=== PATIENT | male | born 1945 ===

== ENCOUNTER 2018-05-23 14:12 | Inpatient (IN) | payer MEDICARE, MEDICAID ==
[~2018-05-23] VITALS: Ht 182.9 cm; Wt 105.4 kg
--- NOTE | 2018-05-23 22:00 | NUR ---
NURSE NOTES: Patient is transferred via gurney without any incident. Patient is alert to name only, able to follow simple commands, however, shows s/s of confusion. Vital signs are as follows: BP: 152/93, HR: 56, O2: 96 RA, T: 98.4. Skin assessment done, patient's skin is intact. Left hand 22g started. Belongings list checked and signed. Will contact primary MD regarding inpatient orders.
--- NOTE | 2018-05-23 22:30 | NUR ---
NURSE NOTES: Contacted Dr. Samuel, however, Dr. Abdalla is covering, new orders noted and will be carried out.
[2018-05-23 22:43] VITALS: BP 158/98
--- NOTE | 2018-05-23 22:50 | NUR ---
NURSE NOTES: Attempted to contact [facility] [phone] regarding patient's PNA and influenza vaccine, however, no one was able to picker machine operator.
[2018-05-23] MEDS ORDERED: METAMUCIL FIBE3.4 G1 PO (22:59)
[2018-05-23] MEDS ORDERED: LIPITOR20 MG ORAL (22:59)
[2018-05-23] MEDS ORDERED: MOM30 ML ORAL (22:59)
[2018-05-23] MEDS ORDERED: BENZTROPINE ME0.5 MG PO (22:59)
[2018-05-23] MEDS ORDERED: TRILEPTAL150 MG ORAL (22:59)
[2018-05-23] MEDS ORDERED: VITAMIN D1000 UNI1 ORAL (22:59)
[2018-05-23] MEDS ORDERED: SENNA LAXATIVE8.6 MG PO (22:59)
[2018-05-23] MEDS ORDERED: MEMANTINE HCL10 MG PO (22:59)
[2018-05-23] MEDS ORDERED: ACETAMINOPHEN120 MG PO (22:59)
[2018-05-23] MEDS ORDERED: ASPIRIN81 M3 PO (22:59)
[2018-05-23] MEDS ORDERED: DONEPEZIL HCL10 M2 ORAL (22:59)
[2018-05-23] MEDS ORDERED: Sennosides 8.6mg tab ORAL PRN (23:30)
[2018-05-24] VITALS (7 sets, daily range): BP systolic 120–180; BP diastolic 64–94
--- NOTE | 2018-05-24 03:00 | NUR ---
NURSE NOTES: Patient is asleep but arousable by voice. No s/s of acute distress. Will continue to monitor.
[2018-05-24] MEDS ORDERED: Sennosides 8.6mg tab ORAL PRN ×2 (06:45→12:45)
[2018-05-24 07:30] LABS: BASOPHILS % (AUTO) 0.9 % (0.0-2.0); EOSINOPHILS % (AUTO) 5.1 % (0.0-3.0); HEMATOCRIT 43.1 % (42.0-52.0); HEMOGLOBIN 15.9 G/DL (14.2-18.0); LYMPHOCYTES % (AUTO) 25.5 % (20.0-45.0); MEAN CORPUSCULAR VOLUME 97 FL (80-99); MONOCYTES % (AUTO) 11.6 % (1.0-10.0); PLATELET COUNT 149 K/UL (150-450); RED BLOOD COUNT 4.46 M/UL (4.70-6.10); RED CELL DISTRIBUTION WIDTH 11.6 % (11.6-14.8); WHITE BLOOD COUNT 5.3 K/UL (4.8-10.8)
[2018-05-24 07:37] LABS: APPEARANCE,URINE CLEAR; BILIRUBIN, URINE NEGATIVE (NEGATIVE); COLOR,URINE PALE YELLOW; GLUCOSE, URINE (UA) NEGATIVE (NEGATIVE); KETONES,URINE NEGATIVE (NEGATIVE); LEUKOCYTE ESTERASE ,URINE NEGATIVE (NEGATIVE); NITRITE,URINE NEGATIVE (NEGATIVE); PH,URINE 7 (4.5-8.0); PROTEIN,URINE NEGATIVE (NEGATIVE); UROBILINOGEN,URINE NORMAL MG/DL (0.0-1.0)
--- NOTE | 2018-05-24 07:43 | NUR ---
HAND-OFF: Report given to Case SANCHEZ. Patient is observed in bed, eating breakfast. Endorsed plan of care.
[2018-05-24 08:02] LABS: ANION GAP 7 mmol/L (5-15); BLOOD UREA NITROGEN 10 mg/dL (7-18); CALCIUM 8.6 MG/DL (8.5-10.1); CARBON DIOXIDE 26 MMOL/L (21-32); CHLORIDE 106 MMOL/L (98-107); POTASSIUM 3.7 MMOL/L (3.5-5.1); SODIUM 139 MMOL/L (136-145)
--- NOTE | 2018-05-24 08:15 | NUR ---
NURSE NOTES: Received patient from Yuliya RN, patient is resting bed comfortable, bed is locked and in lowest position, will continue to monitor.
--- NOTE | 2018-05-24 08:28 | NUR ---
NURSE NOTES: Received patient from DANIEL Dwyer. Patient in bed, in room air. Patient not in respiratory distress. Bed light in lowest position. Call light within reach. Will continue monitoring patient.
[2018-05-24] MEDS ORDERED: Milk of Magnesia 30ml Ud ORAL SCH (09:00)
[2018-05-24] MEDS ORDERED: Memantine 10mg tab ORAL SCH (09:00)
[2018-05-24] MEDS: Aspirin Baby 81mg ORAL SCH (09:10)
[2018-05-24] MEDS: OXcarbazepine 150mg tab ORAL SCH ×3 (09:10→17:51)
[2018-05-24] MEDS: Vitamin D 1000 IU Tab ORAL SCH (09:10)
[2018-05-24] MEDS: D5NS 1,000 ML IV SCH (12:32)
--- NOTE | 2018-05-24 12:36 | History & Physical ---
History and Physical History & Physicial 72y old- poor po aloc confused bp elevation bradycardia plan: hold mind altering meds- slow hydrate ST eval CXR EKG 2D echo BP meds Stool sofner Monitor labs [phone] Davie Lee MD May 24, 2018 12:36
[2018-05-24] MEDS ORDERED: Milk of Magnesia 30ml Ud ORAL PRN (12:45)
[2018-05-24] MEDS: Docusate 100mg cap ORAL SCH ×2 (13:02→17:50)
[2018-05-24 13:14] LABS: ALANINE AMINOTRANSFERASE 67 U/L (12-78); ALBUMIN 3.4 G/DL (3.4-5.0); ALKALINE PHOSPHATASE 77 U/L (46-116); ASPARTATE AMINO TRANSFERASE 48 U/L (15-37); BILIRUBIN,DIRECT 0.2 MG/DL (0.0-0.3); BILIRUBIN,TOTAL 0.6 MG/DL (0.2-1.0); CHOLESTEROL 99 MG/DL (< 200); FERRITIN 151 NG/ML (8-388); GAMMA GLUTAMYL TRANSPEPTIDASE 49 U/L (5-85); HDL CHOLESTEROL 43 MG/DL (40-60); TRIGLYCERIDES 43 MG/DL (30-150)
--- NOTE | 2018-05-24 13:32 | NUR ---
ST NOTE: BEDSIDE SWALLOW EVAL RECEIVED BEDSIDE SWALLOW EVAL CHART REVIEWED PRIOR THE EVALUATION PT IS A 72-YEAR-OLD MALE WHO WAS ADMITTED DUE TO POOR PO INTAKE AND FAILURE TO THRIVE. DYSPHAGIA RISK FACTORS: ALZHEIMER'S DEMENTIA, PSYCHOSIS, HTN, EPILEPSY, ANXIETY, CHRONIC HEART FAILURE. PLOF: PT RESIDES AT ASSISTED HOME. PER CHART, PT IS ON MARIBEL MECH SOFT WITH THIN LIQUIDS. PER PT'S POLST: FULL CODE, FULL TREATMENT AND OKAY TO LONG-TERM ARTIFICIAL NUTRITION, INCLUDING FEEDING TUBES. CURRENT STATUS: PT SEEN AT BEDSIDE IN PM. ALERT, COOPERATIVE, CONFUSED, DID NOT FOLLOW DIRECTIONS, BUT ABLE TO ANSWER SIMPLE QUESTIONS RELATED BASIC WANTS AND NEEDS. GIVEN PO TRIALS: ASSESS PT DURING LUNCH, COMPLETED MEAL WITH PT. PO INCLUDED: THIN(CUP/STRAW), NECTAR THICK(TSP), CHOPPED MASTICATED SOLID INITIAL IMPRESSION: PROBABLE MILD OROPHARYNGEAL DYSPHAGIA MILD R-SIDED WEAKNESS, PT HAS UPPER TEETH. SLOW MASTICATION TIME, INCREASED ORAL TRANSIT TIME AND OROPHARYNGEAL TIME FAIR LARYNGEAL ELEVATION, NO OVERT S/S OF ASPIRATION. DUE TO PT HAS H/O ALZHEIMER'S DEMENTIA, PT HAS RISK FOR (SILENT) ASPIRATION. RECOMMENDATIONS: 1. CHANGED DIET TO MARIBEL MECH SOFT(GROUND) WITH THIN LIQUIDS DIET 2. STRICT ASPIRATION/REFLUX PRECAUTIONS WITH 1TO1 FEEDING. 3. VIDEOSWALLOW STUDY IF NEEDED. POSTED ASPIRATION/REFLUX PRECAUTIONS SIGN. D/W JORGE A SANCHEZ AND THE STAFF.
--- NOTE | 2018-05-24 14:55 | Diagnostic Imaging Report ---
Indication: Dyspnea Comparison: None A single view chest radiograph was obtained. Findings: No definite infiltrate or pulmonary vascular congestion identified. The heart is enlarged. The aorta is mildly enlarged consistent with atherosclerotic vascular disease. The bones are osteopenic. Impression: No acute disease
--- NOTE | 2018-05-24 16:13 | NUR ---
CASE MANAGEMENT: REVIEW 72/M BIBA FROM [facility] CC: AMS SI: AMS . POOR APPETITE T 98.6 HR 53 RR 18 BP 153/98 SAT 96% ROOM AIR IS: NS IVF BOLUS X1 INTERQUAL CRITERIA MET: PATIENT ADMITTED TO MED/SURG UNIT 05/23/2018 DCP: PATIENT IS FROM [facility]
--- NOTE | 2018-05-24 19:20 | NUR ---
NURSE NOTES:Patient received from Case Espinoza / Rebekah SANCHEZ..A/A/AOx2 with episode of confusion . patient denies any pains . no sob/ no n/v noted at this time . left hand G #22 with D5NS @ 50 CC/ hr infusing well. patient incontinent of urine keep clean and dry at all times . safety maintained . call light within reach . bed in low position at all times . bed alarm locked. will continue to monitor patient .
--- NOTE | 2018-05-24 19:37 | NUR ---
HAND-OFF: Report given to .Hand off notes given to DANIEL Duff
--- NOTE | 2018-05-24 19:40 | NUR ---
HAND-OFF: Report given to nurse Duff .
[2018-05-24] MEDS: Heparin 5000 units/ml inj SUBQ SCH (21:00)
[2018-05-24] MEDS ORDERED: Donepezil 10mg tab ORAL SCH (21:00)
[2018-05-24] MEDS: Tamsulosin 0.4mg cap ORAL SCH (22:17)
[2018-05-25] VITALS: BP 150/83
[2018-05-25] MEDS: D5NS 1,000 ML IV SCH ×2 (01:29→22:16)
[2018-05-25 04:00] VITALS: BP 149/84
[2018-05-25 06:31] LABS: BASOPHILS % (AUTO) 0.7 % (0.0-2.0); EOSINOPHILS % (AUTO) 4.8 % (0.0-3.0); HEMATOCRIT 40.6 % (42.0-52.0); HEMOGLOBIN 14.9 G/DL (14.2-18.0); LYMPHOCYTES % (AUTO) 32.2 % (20.0-45.0); MEAN CORPUSCULAR VOLUME 97 FL (80-99); MONOCYTES % (AUTO) 12.5 % (1.0-10.0); NEUTROPHILS % (AUTO) 49.9 % (45.0-75.0); PLATELET COUNT 132 K/UL (150-450); RED BLOOD COUNT 4.18 M/UL (4.70-6.10); RED CELL DISTRIBUTION WIDTH 11.6 % (11.6-14.8); WHITE BLOOD COUNT 5.2 K/UL (4.8-10.8)
--- NOTE | 2018-05-25 06:50 | NUR ---
HAND-OFF: Report given to to TONIA Olsen In stable conditions .patient personal belongings given to Clarence Addendum: 05/25/18 at 0858 by JOSH KEENAN LVN called the family members no answers. Addendum: 05/26/18 at 1827 by JOSH KEENAN INTERVENTIONAL PAIN PHYSICIAN Patient from 301 bed 1 to 406 bed 1 in stable conditions.
[2018-05-25 06:54] LABS: ALANINE AMINOTRANSFERASE 60 U/L (12-78); ALBUMIN 3.2 G/DL (3.4-5.0); ALBUMIN/GLOBULIN RATIO 0.9 (1.0-2.7); ALKALINE PHOSPHATASE 74 U/L (46-116); ANION GAP 7 mmol/L (5-15); ASPARTATE AMINO TRANSFERASE 43 U/L (15-37); BILIRUBIN,TOTAL 0.7 MG/DL (0.2-1.0); BLOOD UREA NITROGEN 8 mg/dL (7-18); CALCIUM 8.6 MG/DL (8.5-10.1); CARBON DIOXIDE 25 MMOL/L (21-32); CHLORIDE 107 MMOL/L (98-107); PHOSPHORUS 2.2 MG/DL (2.5-4.9); POTASSIUM 3.4 MMOL/L (3.5-5.1); SODIUM 139 MMOL/L (136-145)
[2018-05-25 07:04] LABS: % IRON SATURATION 40 % (15-50); AMMONIA 57 umol/L (11-32); IRON 99 ug/dL (50-175); TOTAL IRON BINDING CAPACITY 247 ug/dL (250-450)
--- NOTE | 2018-05-25 07:27 | NUR ---
NURSE NOTES: pt awake alert, no distress. no sob. aox2. ivf runnning. call light within reach. will monitor.
[2018-05-25 07:31] VITALS: BP 116/58
--- NOTE | 2018-05-25 07:50 | NUR ---
HAND-OFF: Report given to DANIEL Robles.
[2018-05-25] MEDS: Heparin 5000 units/ml inj SUBQ SCH ×2 (08:26→21:00)
[2018-05-25] MEDS: Vitamin D 1000 IU Tab ORAL SCH (08:27)
[2018-05-25] MEDS: Aspirin Baby 81mg ORAL SCH (08:27)
[2018-05-25] MEDS: Docusate 100mg cap ORAL SCH ×3 (08:27→17:04)
[2018-05-25] MEDS: OXcarbazepine 150mg tab ORAL SCH ×3 (08:28→17:05)
[2018-05-25 12:00] VITALS: BP 130/54
[2018-05-25] MEDS ORDERED: Potassium Phosphate 30 MM in NS 275 ML IV SCH (13:00)
--- NOTE | 2018-05-25 14:48 | NUR ---
RD ASSESSMENT & RECOMMENDATIONS SEE CARE ACTIVITY FOR COMPLETE ASSESSMENT DAILY ESTIMATED NEEDS: Needs based on cardiac, 86kg abw 25-30 kcals/kg 5106-1034 total kcals 1-1.2 g protein/kg 86-103 g total protein 25-30 mL/kg 9264-4870 total fluid mLs NUTRITION DIAGNOSIS: Swallowing difficulty R/T dysphagia, decreased mental status as evidenced by REFRACTORY TILE HELPER recommends mech soft ground texture. CURRENT DIET:REGULAR PO DIET RECOMMENDATIONS: Maintain no added salt/ texture per REFRACTORY TILE HELPER ADDITIONAL RECOMMENDATIONS: * Calibrated bedscale wt * Weekly wt monitoring- admitted w/ c/o wt loss * Monitor PO intake closely- admitted w/ c/o poor appetite + wt loss * Consider Darnell Count x 48 hrs- admitted w/ c/o poor appetite * Monitor lytes closely, replete as needed (low K and phos)
[2018-05-25 15:47] VITALS: BP 118/60
--- NOTE | 2018-05-25 16:06 | Cardiology Report ---
APPROVED REPORT EKG Measurement Heart [id number] Sinus bradycardia Abnormal QRS-T angle, consider primary T wave abnormality Abnormal ECG
--- NOTE | 2018-05-25 16:10 | NUR ---
NURSE NOTES: Pt has multiple episodes (15 times in 30 minutes) of getting up oob unassisted and pt has unsteady gait. pt has confusion. safety precautions applied, bed alarm on. assisted pt back to bed. paged Dr Lee if possible for pierre. soft wrist restraints
--- NOTE | 2018-05-25 16:13 | General Progress Note ---
Assessment/Plan Problem List: (1) Failure to thrive SNOMED: 53798344 (2) Encephalopathy ICD Codes: G93.40 - Encephalopathy, unspecified SNOMED: 91379384 (3) HTN (hypertension) ICD Codes: I10 - Essential (primary) hypertension SNOMED: 61189890 (4) Bradycardia on ECG Assessment & Plan: asymptomatic ICD Codes: R00.1 - Bradycardia, unspecified SNOMED: 898953501 Status: stable Status Narrative 72y old- poor po aloc confused bp elevation bradycardia Assessment/Plan plan: hold mind altering meds- slow hydrate ST eval CXR Neg EKG Sinus tamara 2D echo 65% Ej Fx BP meds adjusted Stool sofner Monitor labs, K phos Subjective ROS Limited/Unobtainable: No Constitutional: Reports: malaise Allergies: Coded Allergies: No Known Allergies (Unverified , 05/23/18) Objective Last 24 Hour Vital Signs Date Time Temp Pulse Resp B/P (MAP) Pulse Ox O2 Delivery O2 Flow Rate FiO2 05/25/18 15:47 97.0 60 17 118/60 (79) 95 05/25/18 12:00 97.0 58 17 130/54 (79) 95 05/25/18 08:28 60 116/58 05/25/18 07:31 97.8 60 17 116/58 (77) 95 05/25/18 07:20 Room Air 05/25/18 04:00 97.8 68 17 149/84 (105) 95 05/25/18 00:00 97.8 64 17 150/83 (105) 95 05/24/18 21:00 Room Air 05/24/18 20:00 97.7 56 20 141/64 (89) 95 Intake and Output 05/24/18 05/25/18 19:00 07:00 Intake Total 410 ml 1260 ml Balance 410 ml 1260 ml Intake Oral 360 ml 660 ml IV Total 50 ml 600 ml # Voids 3 4 Current Medications Medications (Trade) Dose Ordered Sig/Lawrence Route PRN Reason Start Time Stop Time Status Last Admin Dose Admin Acetaminophen (Tylenol) 650 mg Q4H PRN ORAL Mild Pain/Temp > 100.5 05/24/18 12:45 06/23/18 12:44 Amlodipine Besylate (Norvasc) 10 mg DAILY ORAL 05/25/18 09:00 06/24/18 08:59 Aspirin (ASA) 81 mg DAILY ORAL 05/24/18 09:00 06/23/18 08:59 05/25/18 08:27 Dextrose/Sodium Chloride 1,000 ml @ 50 mls/hr Q20H IV 05/24/18 12:32 06/23/18 12:31 05/25/18 01:29 Docusate Sodium (Colace) 100 mg THREE TIMES A DAY ORAL 05/24/18 13:00 06/23/18 12:59 05/25/18 12:43 Heparin Sodium (Porcine) (Heparin 5000 units/ml) 5,000 units EVERY 12 HOURS SUBQ 05/24/18 21:00 06/23/18 20:59 Magnesium Hydroxide (Mom) 30 ml QHS PRN ORAL constipation 05/24/18 12:45 06/23/18 08:59 Oxcarbazepine (Trileptal) 300 mg THREE TIMES A DAY ORAL 05/24/18 09:00 06/23/18 08:59 05/25/18 13:45 Pantoprazole (Protonix) 40 mg EVERY 12 HOURS ORAL 05/24/18 21:00 06/23/18 20:59 05/25/18 08:27 Potassium Phosphate 30 mm/ Sodium Chloride 285 ml @ 47.5 mls/hr ONCE IV 05/25/18 13:00 05/25/18 19:00 05/25/18 14:43 Sennosides (Senokot) 8.6 mg BIDPRN PRN ORAL CONSTIPATION 05/24/18 12:45 06/23/18 06:44 Tamsulosin HCl (Flomax) 0.4 mg BEDTIME ORAL 05/24/18 21:00 06/23/18 20:59 05/24/18 22:17 Vitamin D (Vitamin D) 1,000 intlu DAILY ORAL 05/24/18 09:00 06/23/18 08:59 05/25/18 08:27 Laboratory Tests 05/25/18 05:00: White Blood Count 5.2, Red Blood Count 4.18L, Hemoglobin 14.9, Hematocrit 40.6L , Mean Corpuscular Volume 97, Mean Corpuscular Hemoglobin 35.5H, Mean Corpuscular Hemoglobin Concent 36.6H, Red Cell Distribution Width 11.6, Platelet Count 132L, Mean Platelet Volume 5.5L, Neutrophils (%) (Auto) 49.9, Lymphocytes (%) (Auto) 32.2, Monocytes (%) (Auto) 12.5H, Eosinophils (%) (Auto) 4.8H, Basophils (%) (Auto) 0.7, Sodium Level 139, Potassium Level 3.4L, Chloride Level 107, Carbon Dioxide Level 25, Anion Gap 7, Blood Urea Nitrogen 8 , Creatinine 1.0, Estimat Glomerular Filtration Rate , Glucose Level 94, Uric Acid 4.9, Calcium Level 8.6, Phosphorus Level 2.2L, Magnesium Level 1.9, Iron Level 99, Total Iron Binding Capacity 247L, Percent Iron Saturation 40, Unsaturated Iron Binding 148, Total Bilirubin 0.7, Aspartate Amino Transf (AST/ SGOT) 43H, Alanine Aminotransferase (ALT/SGPT) 60, Alkaline Phosphatase 74, Ammonia 57H, Total Protein 6.7, Albumin 3.2L, Globulin 3.5, Albumin/Globulin Ratio 0.9L Height (Feet): 6 Weight (Pounds): 232 General Appearance: no apparent distress, lethargic Cardiovascular: bradycardia Respiratory/Chest: decreased breath sounds Abdomen: soft Davie Lee MD May 25, 2018 16:13
[2018-05-25] MEDS ORDERED: Lactulose 20gm/30ml UDC ORAL SCH (16:15)
[2018-05-25] MEDS ORDERED: Haloperidol 5mg/ml Inj IM PRN (16:30)
--- NOTE | 2018-05-25 19:04 | NUR ---
HAND-OFF: Report given to CHARISSA SANCHEZ.
[2018-05-25 20:00] VITALS: BP 159/90
--- NOTE | 2018-05-25 20:13 | NUR ---
NURSE NOTES: Received patient asleep,comfortable.
[2018-05-25] MEDS: Tamsulosin 0.4mg cap ORAL SCH (22:15)
[2018-05-25] MEDS: Lactulose 20gm/30ml UDC ORAL SCH (22:15)
[2018-05-26] VITALS: BP 164/94
[2018-05-26 04:00] VITALS: BP 143/86
[2018-05-26] MEDS: Lactulose 20gm/30ml UDC ORAL SCH ×2 (05:35→13:40)
[2018-05-26 06:04] LABS: BASOPHILS % (AUTO) 0.8 % (0.0-2.0); EOSINOPHILS % (AUTO) 5.3 % (0.0-3.0); HEMATOCRIT 46.1 % (42.0-52.0); HEMOGLOBIN 16.5 G/DL (14.2-18.0); LYMPHOCYTES % (AUTO) 29.4 % (20.0-45.0); MEAN CORPUSCULAR VOLUME 98 FL (80-99); MONOCYTES % (AUTO) 9.6 % (1.0-10.0); NEUTROPHILS % (AUTO) 54.9 % (45.0-75.0); PLATELET COUNT 139 K/UL (150-450); RED BLOOD COUNT 4.72 M/UL (4.70-6.10); WHITE BLOOD COUNT 5.6 K/UL (4.8-10.8)
[2018-05-26 06:11] LABS: AMMONIA 27 umol/L (11-32)
[2018-05-26 06:19] LABS: ALANINE AMINOTRANSFERASE 63 U/L (12-78); ALBUMIN 3.3 G/DL (3.4-5.0); ALBUMIN/GLOBULIN RATIO 0.9 (1.0-2.7); ALKALINE PHOSPHATASE 80 U/L (46-116); ANION GAP 9 mmol/L (5-15); ASPARTATE AMINO TRANSFERASE 36 U/L (15-37); BILIRUBIN,TOTAL 0.7 MG/DL (0.2-1.0); BLOOD UREA NITROGEN 9 mg/dL (7-18); CALCIUM 8.7 MG/DL (8.5-10.1); CARBON DIOXIDE 25 MMOL/L (21-32); CHLORIDE 107 MMOL/L (98-107); CREATININE 0.9 MG/DL (0.55-1.30); PHOSPHORUS 2.8 MG/DL (2.5-4.9); POTASSIUM 3.6 MMOL/L (3.5-5.1); SODIUM 141 MMOL/L (136-145)
--- NOTE | 2018-05-26 07:27 | NUR ---
HAND-OFF: Report given to DANIEL Antunez.
--- NOTE | 2018-05-26 07:32 | NUR ---
NURSE NOTES: Patient received in stable condition, sleeping in bed. Breathing unlabored on room air, no s/s of respiratory distress observed. No s/s of pain observed. IV site on left hand patent and intact, flowing fluids at 50cc/hr. Patient has a condom cath. Bed locked and set in low position. Call light within reach, will continue to monitor.
[2018-05-26 08:02] VITALS: BP 152/89
[2018-05-26] MEDS: Docusate 100mg cap ORAL SCH ×2 (08:52→13:00)
[2018-05-26] MEDS: Vitamin D 1000 IU Tab ORAL SCH (08:52)
[2018-05-26] MEDS: Aspirin Baby 81mg ORAL SCH (08:52)
[2018-05-26] MEDS: Heparin 5000 units/ml inj SUBQ SCH (08:54)
[2018-05-26] MEDS: OXcarbazepine 150mg tab ORAL SCH ×2 (08:57→13:00)
--- NOTE | 2018-05-26 11:18 | General Progress Note ---
Assessment/Plan Problem List: (1) Failure to thrive SNOMED: 66417884 (2) Encephalopathy ICD Codes: G93.40 - Encephalopathy, unspecified SNOMED: 16414984 (3) HTN (hypertension) ICD Codes: I10 - Essential (primary) hypertension SNOMED: 87679386 (4) Bradycardia on ECG Assessment & Plan: asymptomatic ICD Codes: R00.1 - Bradycardia, unspecified SNOMED: 540842547 Status: stable Assessment/Plan plan: DC to ECF continue per psych management hold mind altering meds- Stop hydrate ST eval CXR Neg EKG Sinus tamara 2D echo 65% Ej Fx BP meds adjusted Stool sofner Monitor labs, K phos Subjective ROS Limited/Unobtainable: No Allergies: Coded Allergies: No Known Allergies (Unverified , 05/23/18) Objective Last 24 Hour Vital Signs Date Time Temp Pulse Resp B/P (MAP) Pulse Ox O2 Delivery O2 Flow Rate FiO2 05/26/18 09:00 Room Air 05/26/18 08:52 93 152/89 05/26/18 08:02 98.7 93 20 152/89 (110) 99 05/26/18 04:00 98.2 60 20 143/86 (105) 96 05/26/18 00:00 97.3 65 19 164/94 (117) 95 05/25/18 20:53 Room Air 05/25/18 20:00 97.4 62 20 159/90 (113) 95 05/25/18 15:47 97.0 60 17 118/60 (79) 95 05/25/18 12:00 97.0 58 17 130/54 (79) 95 Intake and Output 05/25/18 05/26/18 18:59 06:59 Intake Total 400 ml 550 ml Output Total 400 ml Balance 0 ml 550 ml IV Total 400 ml 550 ml Output Urine Total 400 ml # Voids 3 # Bowel Movements 1 Current Medications Medications (Trade) Dose Ordered Sig/Lawrence Route PRN Reason Start Time Stop Time Status Last Admin Dose Admin Acetaminophen (Tylenol) 650 mg Q4H PRN ORAL Mild Pain/Temp > 100.5 05/24/18 12:45 06/23/18 12:44 Amlodipine Besylate (Norvasc) 5 mg DAILY ORAL 05/26/18 09:00 06/24/18 08:59 05/26/18 08:52 Aspirin (ASA) 81 mg DAILY ORAL 05/24/18 09:00 06/23/18 08:59 05/26/18 08:52 Dextrose/Sodium Chloride 1,000 ml @ 50 mls/hr Q20H IV 05/24/18 12:32 06/23/18 12:31 05/25/18 22:16 Docusate Sodium (Colace) 100 mg THREE TIMES A DAY ORAL 05/24/18 13:00 06/23/18 12:59 05/26/18 08:52 Haloperidol Lactate (Haldol) 5 mg Q6H PRN IM Agitation 05/25/18 16:30 06/24/18 16:29 Heparin Sodium (Porcine) (Heparin 5000 units/ml) 5,000 units EVERY 12 HOURS SUBQ 05/24/18 21:00 06/23/18 20:59 Lactulose (Cephulac) 20 gm Q8HR ORAL 05/25/18 22:00 06/24/18 21:59 05/26/18 05:35 Magnesium Hydroxide (Mom) 30 ml QHS PRN ORAL constipation 05/24/18 12:45 06/23/18 08:59 Mirtazapine (Remeron) 7.5 mg BEDTIME ORAL 05/25/18 21:00 06/24/18 20:59 05/25/18 22:15 Oxcarbazepine (Trileptal) 300 mg THREE TIMES A DAY ORAL 05/24/18 09:00 06/23/18 08:59 05/26/18 08:57 Pantoprazole (Protonix) 40 mg EVERY 12 HOURS ORAL 05/24/18 21:00 06/23/18 20:59 05/26/18 08:52 Quetiapine Fumarate (SEROquel) 25 mg Q12HR ORAL 05/25/18 16:30 06/24/18 16:29 05/26/18 08:52 Sennosides (Senokot) 8.6 mg BIDPRN PRN ORAL CONSTIPATION 05/24/18 12:45 06/23/18 06:44 Tamsulosin HCl (Flomax) 0.4 mg BEDTIME ORAL 05/24/18 21:00 06/23/18 20:59 05/25/18 22:15 Vitamin D (Vitamin D) 1,000 intlu DAILY ORAL 05/24/18 09:00 06/23/18 08:59 05/26/18 08:52 Laboratory Tests 05/26/18 04:45: White Blood Count 5.6, Red Blood Count 4.72, Hemoglobin 16.5, Hematocrit 46.1, Mean Corpuscular Volume 98, Mean Corpuscular Hemoglobin 35.0H, Mean Corpuscular Hemoglobin Concent 35.8, Red Cell Distribution Width 12.0, Platelet Count 139L, Mean Platelet Volume 6.3L, Neutrophils (%) (Auto) 54.9, Lymphocytes (%) (Auto) 29.4, Monocytes (%) (Auto) 9.6, Eosinophils (%) (Auto) 5.3H, Basophils (%) (Auto ) 0.8, Sodium Level 141, Potassium Level 3.6, Chloride Level 107, Carbon Dioxide Level 25, Anion Gap 9, Blood Urea Nitrogen 9, Creatinine 0.9, Estimat Glomerular Filtration Rate , Glucose Level 78, Calcium Level 8.7, Phosphorus Level 2.8, Total Bilirubin 0.7, Aspartate Amino Transf (AST/SGOT) 36, Alanine Aminotransferase (ALT/SGPT) 63, Alkaline Phosphatase 80, Ammonia 27, Total Protein 7.0, Albumin 3.3L, Globulin 3.7, Albumin/Globulin Ratio 0.9L Height (Feet): 6 Weight (Pounds): 232 General Appearance: no apparent distress Cardiovascular: normal rate Respiratory/Chest: lungs clear Abdomen: soft Davie Lee MD May 26, 2018 11:18
[2018-05-26] MEDS ORDERED: SEROQUEL25 MG ORAL (11:24)
[2018-05-26] MEDS ORDERED: PROTONIX40 MG ORAL (11:24)
[2018-05-26] MEDS ORDERED: FLOMAX0.4 MG ORAL (11:24)
[2018-05-26] MEDS ORDERED: DOK100 M1 ORAL (11:24)
[2018-05-26] MEDS ORDERED: NORVASC5 MG ORAL (11:24)
[2018-05-26] MEDS ORDERED: MOM30 ML ORAL (11:24)
[2018-05-26] MEDS ORDERED: MIRTAZAPINE15 M3 ORAL (11:24)
--- NOTE | 2018-05-26 11:24 | Discharge Instructions ---
Discharge Instructions Discharge Instructions Follow up with: fu with PMD at [facility] Diet: cardiac 2 GM Na, low fat Special Instructions aspiration percautions- Psych eval For Congestive Heart Failure Reminder Report to your physician any weight gain of 5 pounds or more in one week. Davie Lee MD May 26, 2018 11:24
--- NOTE | 2018-05-26 12:57 | NUR ---
DISCHARGE PLANNED PATIENT DISCHARGED BACK TO: [facility] ROOM# 16-B SKILLED T: [phone] FOR NURSE TO NURSE REPORT [facility] HAS BEEN ARRANGED FOR AIR GUN OPERATOR AT [address] ADA [id number]
[2018-05-26 16:00] VITALS: BP 148/85
--- NOTE | 2018-05-26 16:12 | NUR ---
NURSE NOTES: Patient discharged, accompanied by ambulance staff to [facility] in [place]. Patient is in stable condition, breathing unlabored on room air. Patient informed he is leaving the hospital and going to [facility]. Belongings confirmed and placed with patient. Report given to Tiffanie SANCHEZ from [facility]. Informed her that the patient is alert x1 and confused, incontinentx2, breathing on room air, no skin issues. Medication list faxed to [facility] as requested. Necessary paperwork sent.
--- NOTE | 2018-05-26 18:01 | History and Physical Report ---
DATE OF ADMISSION: 05/23/2018 HISTORY OF PRESENT ILLNESS: The patient was a direct admit from to the floor for altered level of consciousness and failure to thrive. The patient is a poor historian. According to the medication, the patient appears to have history of psychiatric disease and dementia. He is 72 years old and was sent for poor p.o. intake and altered level of consciousness. The patient is confused and the BP was elevated and bradycardiac. PHYSICAL EXAMINATION: VITAL SIGNS: On the day of admission, temperature was 98.6, pulse rate was 53, blood pressure 158/98. GENERAL: The patient obese, poor historian, awake not in any distress. Sclerae not icteric. HEENT: Head normocephalic. NECK: Rigid to all directions. LUNGS: Poor inspiratory effort. Decreased breath sound over the bases. HEART: Regular. Bradycardic. ABDOMEN: Obese. EXTREMITIES: Lower extremities, no edema. LABORATORY AND DIAGNOSTIC DATA: The other data available, chest x-ray, no active disease. The urine was negative. The urine tox was negative. Initial labs, mild elevation of AST and pro-natriuretic peptic acid. Potassium 3.4. Phosphorus 2.2. A 2D echocardiogram had ejection fraction of 65 to 70% and the 12-lead EKG was bradycardia. IMPRESSION: 1. Toxic metabolic encephalopathy. 2. Elevated blood pressure. 3. bradycardia and failure to thrive. PLAN: The patient was hydrated to correct electrolyte. BP medication given. Stool softener given. Psych medication continued. ST evaluation is going to be sought. According to how the patient's condition evolves, we will make the proper changes in our future management. Davie Lee M.D. DR: Angel JOB#: [id number] CC:
--- NOTE | 2018-05-27 12:33 | Discharge Summary ---
Discharge Summary Discharge Summary _ DATE OF ADMISSION: 05/23/2018 DATE OF DISCHARGE: 05/26/2018 DISCHARGED BY: Dr. Davie Lee BRIEF HOSPITAL COURSE: Patient is a 72-year-old male, a direct admit to the floor for altered level of consciousness and failure to thrive. Patient is poor historian. Upon review of medications, patient appears to have history of psychiatric disease and dementia. He was sent in for poor p.o. intake and altered level of consciousness. The patient is confused and was noted to have elevated blood pressure and pulse rate in the 50s. Chest x-ray did not show any active disease. Urinalysis was negative. Urine toxicology was negative. Initial labs showed mild elevation of AST and pro- BNP. Echocardiogram showed ejection fraction of 65-70%. He was given IV hydration. He was continued on his antihypertensives and psychiatric medications. Speech evaluation showed increased oral transit time and oropharyngeal time. There was probable mild oropharyngeal dysphagia, no overt signs and symptoms of aspiration. Due to patient's dementia, patient has high risk for aspiration. Diet was changed to MARIBEL mechanical soft ground diet with thin liquids. Strict aspiration precaution with 1:1 feed. He was given potassium and phosphorus replacement. Ammonia level was slightly elevated to 57. He was given lactulose. Ammonia level normalized. AST normalized. Electrolytes were stable. He was eventually discharged back to [facility]. FINAL DIAGNOSES: Toxic metabolic encephalopathy Bradycardia Failure to thrive Hypertension DISPOSITION: Patient was discharged to a SNF. DISCHARGE MEDICATIONS: Refer to Discharge Medication List. I have been assigned to dictate discharge summary on this account, and I was not involved in the patient's management. Talya Kiser NP May 27, 2018 12:33
== END 2018-05-26 16:33 | DRG 93 ==
LOC: 3E 21:28 → 4E 05-25 06:41
DX: G92 Toxic encephalopathy (principal); R62.7 Adult failure to thrive; I10 Essential (primary) hypertension; R00.1 Bradycardia, unspecified; R13.12 Dysphagia, oropharyngeal phase; F03.90 Unspecified dementia, unspecified severity, without behavioral disturbance, psychotic disturbance, mood disturbance, and anxiety; F99 Mental disorder, not otherwise specified
CPT/HCPCS: 36415; 71045; 80048; 80053; 80061; 80076; 80307; 81001; 82140; 82607; 82728; 82746; 82977; 83036; 83540; 83550; 83735; 83880; 84100; 84443; 84484; 84550; 85025; 86140; 87081; 93005; 93306